=== PATIENT | male | born 1980 | race Two or more races ===

== ENCOUNTER → 2024-07-05 | Outpatient (CLI) | payer MEDICAID, SELFPAY ==
--- NOTE | 2024-07-05 16:24 | XR_ITS ---
Examination: Lumbar spine, 5 views Technique: Lumbar spine AP, lateral, coned lateral lower lumbar spine, bilateral obliques 5 views Exam date and time: July 05, 2024 1637 hours INDICATIONS: Patient fell one year ago with injury to the lower back and lower back persistent pain FINDINGS: Adequate alignment lumbar vertebral bodies No lumbar fracture Diffuse mild to moderate lumbar discogenic most prominent at L4-L5 No spondylolisthesis IMPRESSION: Diffuse mild to moderate lumbar degenerative disc disease
== END | disposition home or self-care (01) ==
PROVIDERS: PCP Student in an Organized Health Care Education/Training Program; Referring Provider Student in an Organized Health Care Education/Training Program; Visit Provider Student in an Organized Health Care Education/Training Program
DX: M51.369 Other intervertebral disc degeneration, lumbar region without mention of lumbar back pain or lower extremity pain (principal); S39.92XS Unspecified injury of lower back, sequela; W19.XXXS Unspecified fall, sequela
CPT/HCPCS: 72110